=== PATIENT | male | born 1975 | race African-American/Black ===

== ENCOUNTER 2016-12-04 07:05 | Emergency (ER) | payer OTHER ==
[2016-12-04 08:01] LABS: HEMOGLOBIN 16.2 gm/dl (14.0-17.5); RED BLOOD COUNT 4.86 M/UL (4.20-5.50); WHITE BLOOD COUNT 5.9 K/UL (4.5-11.0)
[2016-12-04 08:48] LABS: BUN/CREATININE RATIO 13 (0-10)
== END 2016-12-04 09:50 | disposition home or self-care (01) ==
LOC: ER1 07:05
PROVIDERS: Physician Assistant
DX: J45.909 Unspecified asthma, uncomplicated (principal); F17.200 Nicotine dependence, unspecified, uncomplicated; Z91.041 Radiographic dye allergy status; Z79.899 Other long term (current) drug therapy
CPT/HCPCS: 36415; 71020; 80053; 82550; 82553; 83874; 84484; 85025; 85379; 93005; 94640; 94664; 96374; 99285; J2930